=== PATIENT | male | born 1965 ===

== ENCOUNTER → 2020-12-12 | Outpatient (CLI) | payer BC, OTHER | LOC: SJCVCIMAG 10:27 | PROVIDERS: ATTEND Internal Medicine | DX: R07.2 Precordial pain (principal); E78.00 Pure hypercholesterolemia, unspecified; R42 Dizziness and giddiness; E78.5 Hyperlipidemia, unspecified; Z87.891 Personal history of nicotine dependence; Z72.89 Other problems related to lifestyle; Z79.899 Other long term (current) drug therapy ==

== ENCOUNTER → 2021-03-26 | Outpatient (CLI) | payer OTHER | LOC: CAT 10:52 | PROVIDERS: ATTEND Internal Medicine | DX: Z13.6 Encounter for screening for cardiovascular disorders (principal); I25.10 Atherosclerotic heart disease of native coronary artery without angina pectoris ==